=== PATIENT | female | born 1955 | race Caucasian/White ===

== ENCOUNTER 2017-09-18 10:45 | Emergency (ER) | payer MEDICAID ==
[2017-09-18 13:43] LABS: URINE BLOOD (Dip) POC 3+ (NEGATIVE); URINE GLUCOSE (Dip) POC Negative (NEGATIVE); URINE KETONES (Dip) POC Negative (NEGATIVE); URINE LEUKOCYTE EST (Dip) POC 1+ (NEGATIVE); URINE NITRITE (Dip) POC Positive (NEGATIVE); URINE TOTAL PROTEIN POC Negative (NEGATIVE)
[2017-09-18 13:43] LABS: URINE PH (Dip) POC 5.5 (5.0-8.5)
[2017-09-18] MEDS: CEPHALEXIN 500 MG CAP PO (14:01)
== END 2017-09-18 14:25 | disposition home or self-care (01) ==
LOC: FTE 10:45
DX: N39.0 Urinary tract infection, site not specified (principal)
CPT/HCPCS: 81003; 99283